=== PATIENT | female | born 1950 | race Caucasian/White ===

== ENCOUNTER → 2023-05-23 | Outpatient (CLI) | payer OTHER, SELFPAY ==
--- NOTE | 2023-05-23 17:52 | CT_ITS ---
STUDY: CT SOFT TISSUE NECK WITH CONTRAST REASON FOR EXAM: Female, 72 years old. 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 Palpable left cervical lump. RADIATION DOSAGE (If Supplied By Facility): CTDIvol = ( 10.19 ) mGy, DLP = ( 561.77 ) mGycm TECHNIQUE: The patient was scanned in a multi-detector CT scanner. High resolution transaxial imaging was performed following intravenous administration of 75ML Isovue 370. Sagittal and coronal images were reconstructed. Individualized dose optimization techniques were used for this CT. COMPARISON: None. FINDINGS: There is a 1.1 cm x 1.1 cm heterogeneously enhancing mass in the inferior medial portion of the left lobe of the parotid gland. This corresponds to the palpable abnormality. Normal bilateral m1 armor crewman spaces. Normal bilateral parapharyngeal spaces. Normal bilateral carotid spaces. Normal bilateral sublingual and submandibular glands and spaces. Normal visualized nasopharynx. Normal retropharyngeal space. Normal perivertebral space. Normal visualized bilateral faucial tonsils. The visualized tongue, tongue base and oropharynx are normal. There are minimally enlarged lymph nodes of the neck, with preservation of normal anson architecture, consistent with a reactive lymph hyperplasia. There is no demonstrated solid or cystic mass lesion. There is no abnormal contrast enhancement. Normal epiglottis, bilateral vallecula and hypopharynx. The pre-epiglottic and paraglottic adipose spaces are normal. Normal visualized bilateral piriform sinuses, aryepiglottic folds, vocal cords, and arytenoid-cricoid articulations. Normal subglottic trachea. Normal bilateral lobes of the thyroid gland. Normal visualized pulmonary apices. Normal visualized paranasal sinuses. Normal visualized cervical spine. CT/Soft Tissue Neck W/WO Contrast IMPRESSION: The palpable abnormality) is 1.1 cm x 1.1 cm heterogeneously enhancing mass in the inferior medial portion of the left lobe of the parotid gland. Mild enlargement of cervical lymph nodes slightly more prominent on the left side. Electronically Signed: Ashutosh Osuna MD at 9:39 EDT ,
== END | disposition home or self-care (01) ==
LOC: CT 17:50
PROVIDERS: PCP Family Medicine; Referring Provider Otolaryngology; Visit Provider Otolaryngology
DX: D37.030 Neoplasm of uncertain behavior of the parotid salivary glands (principal)
CPT/HCPCS: 70492; Q9967; A4216